=== PATIENT | female | born 1990 | race Asian ===

== ENCOUNTER 2019-07-24 08:25 | Inpatient (IN) | payer BC, OTHER ==
[2019-07-24 09:35] LABS: BASO % 0.3 % (0-2.0); EOS % 1.4 % (0-4.5); HEMATOCRIT 37.5 % (32.4-45.2); HEMOGLOBIN 12.6 GM/dL (10.7-15.3); LYMPH % 25.3 % (8-40); MCH 28.4 pg (25.7-33.7); MCHC 33.6 g/dl (32.0-36.0); MEAN CELL VOLUME 84.4 fl (80-96); MEAN PLT VOLUME 7.4 fl (7.5-11.1); PLATELET COUNT 228 K/MM3 (134-434); RBC 4.44 M/mm3 (3.60-5.2); RDW 18.7 % (11.6-15.6); WHITE BLOOD COUNT 5.5 K/mm3 (4.0-10.0)
[2019-07-24 09:50] LABS: INR 1.05 (0.83-1.09); PROTHROMBIN TIME (PATIENT) 12.4 SEC (9.7-13.0)
[2019-07-24 09:53] LABS: ACTIVATED PTT 28.5 SECONDS (25.2-36.5)
[2019-07-24 10:05] LABS: BLOOD UREA NITROGEN 4.8 mg/dL (7-18); CALCIUM 8.6 mg/dL (8.5-10.1); CREATININE 0.6 mg/dL (0.55-1.3); POTASSIUM 3.6 mmol/L (3.5-5.1)
[2019-07-24 10:27] VITALS: BMI 29.6
[2019-07-24] MEDS ORDERED: DINOPROSTONE 10 MG VAGINAL SUPPOSITORY VG ONE (11:15)
[2019-07-24] MEDS ORDERED: PROMETHAZINE HCL 25 MG/1 ML VIAL IVPUSH ONE (14:18)
[2019-07-24] MEDS ORDERED: BUTORPHANOL TARTRATE 1 MG/ML VIAL IVPUSH ONE (14:18)
[2019-07-24] MEDS ORDERED: ELECTROLYTE-148 SOLN 500 ML IV ONE (16:00)
[2019-07-24] MEDS ORDERED: PROMETHAZINE HCL 25 MG/1 ML VIAL ONE (17:55)
[2019-07-24] MEDS ORDERED: BUTORPHANOL TARTRATE 1 MG/ML VIAL ONE ×2 (17:55)
[2019-07-24] MEDS: ELECTROLYTE-148 SOLN 1,000 ML IV SCH (20:45)
--- NOTE | 2019-07-24 23:26 | HP ---
Past Medical History - Primary Care Physician PCP:: Yuri Lakhani - Admission Chief Complaint: 41 weeks, for induction of labor History of Present Illness: 29 yo f 0 1 0 41 weeks admitted for cervidil induction of labor , cx ft, 25 vx -3 mi, fhr cat 1, no contraction, cervidil risks has explained to patient History Source: Patient Limitations to Obtaining History: No Limitations - Past Medical History ...: 2 ...Para: 0 ...Term: 0 ...: 0 ...Spon : 1 ...Induced : 0 ...Multiple Gestation: 0 ...LMP: 10/08/18 ... Weeks Gestation by Dates: 41.2 ...EDC by Dates: 07/15/19 ...EDC by Sono: 07/18/19 - Past Surgical History Hx Myomectomy: No Hx Transabdominal Cerclage: No - Smoking History Smoking history: Never smoked Have you smoked in the past 12 months: No - Alcohol/Substance Use Hx Alcohol Use: No - Social History Usual Living Arrangement: Yes: With Spouse History of Recent Travel: No Home Medications - Allergies Allergies/Adverse Reactions: Allergies Allergy/AdvReac Type Severity Reaction Status Date / Time nitrofurantoin Allergy Severe Difficulty Verified 04/10/19 14:19 [From Macrobid] Breathing - Home Medications Home Medications: Ambulatory Orders Pnv No.95/Ferrous Fum/Folic AC [ Formula] 1 each PO DAILY 04/10/19 Review of Systems - Review of Systems Constitutional: reports: No Symptoms Eyes: reports: No Symptoms HENT: reports: No Symptoms Neck: reports: No Symptoms Cardiovascular: reports: No Symptoms Respiratory: reports: No Symptoms Gastrointestinal: reports: No Symptoms Genitourinary: reports: No Symptoms Breasts: reports: No Symptoms Reported Musculoskeletal: reports: No Symptoms Integumentary: reports: No Symptoms Neurological: reports: No Symptoms Endocrine: reports: No Symptoms Hematology/Lymphatic: reports: No Symptoms Psychiatric: reports: No Symptoms Physical Exam - Maternity Vital Signs: Vital Signs Temperature 98.0 F 07/24/19 18:00 Pulse Rate 70 07/24/19 20:00 Respiratory Rate 20 07/24/19 20:00 Blood Pressure 111/60 07/24/19 20:00 O2 Sat by Pulse Oximetry (%) Constitutional: Yes: Well Nourished, No Distress, Calm Eyes: Yes: WNL, Conjunctiva Clear, EOM Intact HENT: Yes: WNL, Atraumatic, Normocephalic Neck: Yes: WNL, Supple, Trachea Midline Cardiovascular: Yes: WNL, Regular Rate and Rhythm Breast(s): Yes: WNL - Abdominal Exam/OB Fundal Height: 40 Number of Fetuses: Single Presentation: Vertex Contractions: No Intensity: Unaware Monitor Mode: External Heart Rate Location: [facility] Category: I Accelerations: Non-Uniform Decelerations: None - Vaginal Exam/OB Vaginal Bleediing: No Speculum Exam: No Dilatation (cm): 1 Effacement (%): 25 Amniotic Membrane Status: Intact Presentation: Vertex/Position Station: -3 - Physical Exam Musculoskeletal: Yes: WNL Extremities: Yes: WNL Edema: LLE: Trace, RLE: Trace Deep Tendon Reflex Grade: Normal +2 Psychiatric: Yes: Alert - Labs Lab Results: CBC, BMP 07/24/19 09:00 07/24/19 09:00 Hemorrhage Risk Assessment - Risk Factors Medium Risk Factors: Yes: None High Risk Factors: Yes: None Risk Score: 1 Risk Level: Medium Risk Problem List - Problems (1) Post-dates Code(s): O48.0 - POST-TERM Qualifiers: Post-term type: 40-42 weeks gestation Qualified Code(s): O48.0 - Post-term (2) Post-dates Code(s): O48.0 - POST-TERM (3) Encounter for induction of labor Code(s): Z34.90 - ENCNTR FOR SUPRVSN OF NORMAL , UNSP, UNSP TRIMESTER Assessment/Plan admit for cervidil induction fhm GBS positive ,will start when in labor
--- NOTE | 2019-07-24 23:29 | PN ---
Progress Note (short form) - Note Progress Note: vcx 2 cm 70 vx -3, fhr cat 1, regular contraction q 2 min , cervidil removed, will start GBS prophylaxis Problem List - Problems (1) Post-dates Code(s): O48.0 - POST-TERM Qualifiers: Post-term type: 40-42 weeks gestation Qualified Code(s): O48.0 - Post-term (2) Post-dates Code(s): O48.0 - POST-TERM (3) Encounter for induction of labor Code(s): Z34.90 - ENCNTR FOR SUPRVSN OF NORMAL , UNSP, UNSP TRIMESTER
[2019-07-25] MEDS ORDERED: AMPICILLIN - 2 GM in SODIUM CHLORIDE 100 ML IVPB ONE (01:00)
[2019-07-25] MEDS ORDERED: OXYTOCIN 30 UNITS in 0.9% NS 30 UNIT/500 ML INFUS.BAG IVPB ONE (01:37)
[2019-07-25] MEDS ORDERED: OXYTOCIN 30 UNITS in 0.9% NS 30 UNIT/500 ML INFUS.BAG IVPB SCH (02:00)
[2019-07-25] MEDS ORDERED: AMPICILLIN SODIUM 2 GM VIAL ONE (02:05)
[2019-07-25] MEDS ORDERED: FENTANYL/BUPIVACAINE/NS/PF - PCEA - 50 ML DISP.SYRIN EP ONE ×2 (02:38→07:17)
[2019-07-25] MEDS ORDERED: NALOXONE HCL 0.4 MG/ML VIAL IVPUSH PRN (03:11)
[2019-07-25] MEDS ORDERED: FENTANYL/BUPIVACAINE/NS/PF - PCEA - 50 ML DISP.SYRIN EP SCH (03:15)
--- NOTE | 2019-07-25 04:05 | PN ---
Progress Note (short form) - Note Progress Note: cx 6 cm , 80 vx , -2 mi, fhr cat 1contraction regular Problem List - Problems (1) Post-dates Code(s): O48.0 - POST-TERM Qualifiers: Post-term type: 40-42 weeks gestation Qualified Code(s): O48.0 - Post-term (2) Post-dates Code(s): O48.0 - POST-TERM (3) Encounter for induction of labor Code(s): Z34.90 - ENCNTR FOR SUPRVSN OF NORMAL , UNSP, UNSP TRIMESTER
--- NOTE | 2019-07-25 04:34 | PN ---
Progress Note (short form) - Note Progress Note: cx 7 cm ,100 vx -1 AROM, clear, FHR cat 1 Problem List - Problems (1) Post-dates Code(s): O48.0 - POST-TERM Qualifiers: Post-term type: 40-42 weeks gestation Qualified Code(s): O48.0 - Post-term (2) Post-dates Code(s): O48.0 - POST-TERM (3) Encounter for induction of labor Code(s): Z34.90 - ENCNTR FOR SUPRVSN OF NORMAL , UNSP, UNSP TRIMESTER
[2019-07-25] MEDS: AMPICILLIN - 1 GM in SODIUM CHLORIDE 100 ML IVPB SCH ×2 (05:00→09:00)
[2019-07-25] MEDS ORDERED: AMPICILLIN SODIUM 1 GM VIAL ONE ×2 (06:00→07:54)
[2019-07-25] MEDS ORDERED: OXYTOCIN 20 UNITS in 0.9% NS 20 UNIT/1,000 ML INFUS.BAG IV ONE (07:55)
--- NOTE | 2019-07-25 08:25 | PN ---
Progress Note (short form) - Note Progress Note: cx 9 cm , 1oo vx -1 mr, fhr cat 1, regullar contraction, wants top off Problem List - Problems (1) Post-dates Code(s): O48.0 - POST-TERM Qualifiers: Post-term type: 40-42 weeks gestation Qualified Code(s): O48.0 - Post-term (2) Post-dates Code(s): O48.0 - POST-TERM (3) Encounter for induction of labor Code(s): Z34.90 - ENCNTR FOR SUPRVSN OF NORMAL , UNSP, UNSP TRIMESTER
[2019-07-25 08:55] LABS: POC NITRAZINE NEG
[2019-07-25] MEDS: ELECTROLYTE-148 SOLN 1,000 ML IV SCH (09:35)
[2019-07-25] MEDS ORDERED: GENTAMICIN SO4 80 MG/2 ML VIAL ONE (10:39)
--- NOTE | 2019-07-25 11:28 | PN ---
Progress Note (short form) - Note Progress Note: full 100 vx 2+ station , fhr cat 2, pushing Problem List - Problems (1) Post-dates Code(s): O48.0 - POST-TERM Qualifiers: Post-term type: 40-42 weeks gestation Qualified Code(s): O48.0 - Post-term (2) Post-dates Code(s): O48.0 - POST-TERM (3) Encounter for induction of labor Code(s): Z34.90 - ENCNTR FOR SUPRVSN OF NORMAL , UNSP, UNSP TRIMESTER
[2019-07-25] MEDS ORDERED: GENTAMICIN 80 MG PREMIXED IVPB 80 MG/100 ML BAG IVPB ONE (12:00)
[2019-07-25] MEDS: OXYTOCIN 20 UNITS in 0.9% NS 20 UNIT/1,000 ML INFUS.BAG IV SCH ×2 (12:10→18:00)
[2019-07-25] MEDS ORDERED: METHYLERGONOVINE MALEATE 0.2 MG/1 ML AMP IM PRN (12:31)
[2019-07-25] MEDS ORDERED: BENZOCAINE 20% 57 GM BOTTLE TP PRN (12:31)
[2019-07-25] MEDS ORDERED: BISACODYL 10 MG SUPP.RECT RC PRN (12:31)
[2019-07-25] MEDS ORDERED: BENZOCAINE 28 GM HEMORRHOIDAL OINTMENT TP PRN (12:31)
[2019-07-25] MEDS ORDERED: WITCH HAZEL 50% (TUCKS) 40 PAD/JAR PAD TP PRN (12:31)
[2019-07-25] MEDS ORDERED: D5W-LR W/ 20 UNITS OXYTOCIN 20 UNIT/1,000 ML INFUS.BAG IV SCH (12:45)
[2019-07-25] MEDS ORDERED: ACETAMINOPHEN 325 MG TABLET (FP) PO ONE (13:30)
[2019-07-25] MEDS ORDERED: oxyCODONE HCL 5 MG TABLET PO ONE (13:30)
--- NOTE | 2019-07-25 13:53 | PN ---
Delivery - Delivery Vaginal Delivery: Spontaneous (cx fullydilated head delivered ,renetta, ,ant. 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
[2019-07-25] MEDS: FERROUS SO4 325 MG TABLET (FP) PO SCH (17:02)
[2019-07-25] MEDS: IBUPROFEN 600 MG TABLET (FP) PO PRN (23:20)
[2019-07-25] MEDS: ACETAMINOPHEN 325 MG TABLET (FP) PO PRN (23:20)
[2019-07-26] MEDS: AMPICILLIN - 1 GM in SODIUM CHLORIDE 100 ML IVPB SCH (02:04)
[2019-07-26 07:35] LABS: BASO % 0.3 % (0-2.0); EOS % 1.5 % (0-4.5); HEMATOCRIT 25.1 % (32.4-45.2); HEMOGLOBIN 8.3 GM/dL (10.7-15.3); LYMPH % 23.6 % (8-40); MCH 28.5 pg (25.7-33.7); MCHC 33.2 g/dl (32.0-36.0); MEAN CELL VOLUME 85.9 fl (80-96); MEAN PLT VOLUME 7.3 fl (7.5-11.1); MONO % 7.2 % (3.8-10.2); NEUT % 67.4 % (42.8-82.8); PLATELET COUNT 168 K/MM3 (134-434); RBC 2.92 M/mm3 (3.60-5.2); WHITE BLOOD COUNT 9.7 K/mm3 (4.0-10.0)
[2019-07-26] MEDS: FERROUS SO4 325 MG TABLET (FP) PO SCH ×2 (08:00→17:57)
--- NOTE | 2019-07-26 09:29 | PN ---
Progress Note (short form) - Note Progress Note: ppd 1 s/p , doing well, no excess vaginal bleeding, ambulating, no dizziness CBC, BMP 07/26/19 06:39 07/24/19 09:00 Last Vital Signs Temp Pulse Resp BP Pulse Ox 98.2 F 73 18 92/52 L 98 07/26/19 05:48 07/26/19 05:48 07/26/19 05:48 07/26/19 05:48 07/25/19 11:45 abdomen soft, no CVA, uterus firm, non tender lochia mild no calf tenderness impression anemia , asymptomatic, no active vaginal bleeding plan iron, vit Problem List - Problems (1) Post-dates Code(s): O48.0 - POST-TERM Qualifiers: Post-term type: 40-42 weeks gestation Qualified Code(s): O48.0 - Post-term (2) Post-dates Code(s): O48.0 - POST-TERM (3) Encounter for induction of labor Code(s): Z34.90 - ENCNTR FOR SUPRVSN OF NORMAL , UNSP, UNSP TRIMESTER
[2019-07-26] MEDS: PRENATAL VITAMINS W/ FOLIC ACID TABLET (FP) PO SCH (09:57)
[2019-07-26] MEDS ORDERED: SENNOSIDES/DOCUSATE COMBO (SENNA PLUS) TABLET (UD) PO PRN (22:00)
[2019-07-26] MEDS: IBUPROFEN 600 MG TABLET (FP) PO PRN (22:05)
[2019-07-26] MEDS: ACETAMINOPHEN 325 MG TABLET (FP) PO PRN (22:06)
--- NOTE | 2019-07-27 10:37 | DS ---
Physical Exam-PREVENTION RN Vital Signs: Vital Signs Temperature 98.1 F 07/26/19 22:00 Pulse Rate 78 07/26/19 22:00 Respiratory Rate 18 07/26/19 22:00 Blood Pressure 106/67 07/26/19 22:00 O2 Sat by Pulse Oximetry (%) 98 07/25/19 11:45 Constitutional: Yes: Well Nourished, No Distress, Calm Eyes: Yes: WNL, Conjunctiva Clear, EOM Intact HENT: Yes: WNL, Atraumatic, Normocephalic Neck: Yes: WNL, Supple, Trachea Midline Cardiovascular: Yes: WNL, Regular Rate and Rhythm Respiratory: Yes: WNL, Regular, CTA Bilaterally Gastrointestinal: Yes: WNL ...Rectal Exam: Yes: WNL Renal/: Yes: WNL ....Post : Yes: Uterus firm, Uterus non-tender, Slight lochia rubra Breast(s): Yes: WNL Musculoskeletal: Yes: WNL Extremities: Yes: WNL Edema: No Integumentary: Yes: WNL Neurological: Yes: WNL, Alert, Oriented ...Motor Strength: WNL Psychiatric: Yes: WNL, Alert, Oriented Labs: CBC, BMP 07/26/19 06:39 07/24/19 09:00 Delivery - Delivery Vaginal Delivery: Spontaneous (cx fullydilated head delivered ,renetta, ,ant. 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 Name: Carlene Mcbride Gender: Female Weight: 7 lb 8 oz Position: Left, OA Total Hours ROM (Hrs/Mins): 7/40 - 1 Minute Total Score: 9 5 Minutes Total Score: 9 - [place] Feeding Plan Initial Plan: Exclusive throughout hospitalization Discharge Summary Problems reviewed: Yes Reason For Visit: INDUCTION OF LABOR Current Active Problems Encounter for induction of labor (Acute) Post-dates (Acute) Post-dates (Acute) Procedures: Principal: Other Procedures: median episiotomy Hospital Course: no complication Health Concerns: anemia Plan of Treatment: iron, vit Goals: hb 12 Condition: Good - Instructions Diet, Activity, Other Instructions: regular diet, no intercourse , if pain, heavy vaginal bleeding, fever , dizziness call MD follow up office 4 weeks Referrals: Yuri Lakhani MD [Staff Physician] - Disposition: HOME - Home Medications Comprehensive Discharge Medication List: Ambulatory Orders Pnv No.95/Ferrous Fum/Folic AC [ Formula] 1 each PO DAILY 04/10/19 Ibuprofen [Motrin -] 600 mg PO QID #28 tablet 07/26/19
[2019-07-27] MEDS: FERROUS SO4 325 MG TABLET (FP) PO SCH (10:54)
[2019-07-27] MEDS: PRENATAL VITAMINS W/ FOLIC ACID TABLET (FP) PO SCH (10:54)
[2019-07-27 13:10] VITALS: BP 110/64; PULSE 76; TEMP 98.4
== END 2019-07-27 13:10 | disposition home or self-care (01) | DRG 807 ==
LOC: JLDR 08:25 → J3W 07-25 15:25
PROVIDERS: ADMIT Obstetrics & Gynecology; ATTEND Obstetrics & Gynecology
PROC: 3E0P7VZ Introduction of Hormone into Female Reproductive, Via Natural or Artificial Opening (ICD-10-PCS; 2019-07-24)
PROC: 0W8NXZZ Division of Female Perineum, External Approach (ICD-10-PCS; principal; 2019-07-25)
PROC: 10E0XZZ Delivery of Products of Conception, External Approach (ICD-10-PCS; 2019-07-25)
DX: O48.0 Post-term pregnancy (principal); O99.824 Streptococcus B carrier state complicating childbirth; Z37.0 Single live birth; Z3A.41 41 weeks gestation of pregnancy
CPT/HCPCS: 36415; 36600; 59409; 80048; 82803; 83986-QW; 85025; 85610; 85730; 86593; 86850; 86900; 86901; 87389

== ENCOUNTER 2019-07-31 02:31 | Emergency (ER) | payer BC, OTHER ==
[2019-07-31] MEDS ORDERED: SODIUM CHLORIDE 0.9% 500 ML INFUS.BAG IV ONE (02:32)
[2019-07-31] MEDS ORDERED: ONDANSETRON 4 MG/2 ML VIAL IVPUSH ONE (02:32)
[2019-07-31] MEDS ORDERED: morphine CARPU-JECT 4 MG/1 ML DISP.SYRIN IVPUSH ONE (02:32)
--- NOTE | 2019-07-31 02:39 | PDOC ---
History of Present Illness - General Stated Complaint: ABD PAIN Time Seen by Provider: 07/31/19 02:31 - History of Present Illness Initial Comments: Cookie Wilson is a 29yo otherwise healthy woman, currently 6 days s/p vaginal delivery who presents with acute onset of vaginal bleeding and severe abdominal pain. She states that she had been feeling well throughout the day, got up overnight and used the bathroom. Immediately afterward, she had sudden onset of severe lower abdominal pain and started to have vaginal bleeding with passage of two clots. Ms Wilson is tearful and unable to provide much information. Her and aunt are at bedside to provide additional information. Past History - Past Medical History Allergies/Adverse Reactions: Allergies Allergy/AdvReac Type Severity Reaction Status Date / Time nitrofurantoin Allergy Severe Difficulty Verified 07/31/19 03:26 [From Macrobid] Breathing Home Medications: Ambulatory Orders Pnv No.95/Ferrous Fum/Folic AC [ Formula] 1 each PO DAILY 04/10/19 Ibuprofen [Motrin -] 600 mg PO QID #28 tablet 07/26/19 Asthma: No Cancer: No Cardiac Disorders: No Diabetes: No HTN: No Seizures: No Thyroid Disease: No - Psycho Social/Smoking Cessation Hx Smoking History: Never smoked Have you smoked in the past 12 months: No Hx Alcohol Use: No Drug/Substance Use Hx: No Hx Substance Use Treatment: No Review of Systems - Review of Systems Comments:: Unable to provide Per family, no complaints prior to tonight *Physical Exam - Physical Exam General: Very uncomfortable. Vitals stable, no acute distress HEENT: Atraumatic, PERRL, EOMI, MMM, voice normal Cards: RRR, no murmur appreciated Pulm: Comfortable on room air, clear to auscultation bilaterally Abd: Soft, nondistended. No rigidity. Pt clutching lower abdomen but no involuntary guarding observed : External vaginal exam with approx 15-20cc of dark red blood. Internal exam deferred due to episiotomy and recent delivery Ext: Atraumatic. No LE edema. ROM intact. WWP Skin: Normal color, no rashes or lesions Neuro: A&Ox3, CN grossly intact, normal speech, motor/sensory grossly intact and symmetric Psych: Upset, tearful ED Treatment Course - LABORATORY CBC & Chemistry Diagram: 07/31/19 02:34 07/31/19 02:34 Medical Decision Making - Medical Decision Making 07/31/19 02:36 Cookie Wilson is a 29yo otherwise healthy woman, currently 6 days s/p vaginal delivery who presents with acute onset of vaginal bleeding and severe abdominal pain. She states that she had been feeling well throughout the day, got up overnight and used the bathroom. Immediately afterward, she had sudden onset of severe lower abdominal pain and started to have vaginal bleeding with passage of two clots. Ms Wilson is tearful and unable to provide much information. Her and aunt are at bedside to provide additional information. - Dark red vaginal bleeding - Pt clutching abdomen, resists exam. Appears to be in significant pain. - CBC, CMP, coags, T&S - IVF - Morphine, zofran - OB consult; pt sees dr Lakhani 07/31/19 03:40 - Call to Dr Valladares, spoke to Dr Seo. Per request of Dr Valladares, confirmed that pt breastfed her baby immediately before the pain started. She reports that could have caused oxytocin release, stimulating a uterine contraction and expelling old blood from within the uterus. Would like to be called back with results. Agrees with hydration, checking h/h, pain control - Pt now sleeping comfortably 07/31/19 03:49 - Labs reviewed. Hgb increassed from 8.3 following delivery on 07/25 to 11.1 today. Appropraite increase. No concerning abnormalities - No active bleeding, small amount of dark red blood noted - Pt continues to sleep comfortably - Will reassess. 07/31/19 05:13 - Pt declines acetaminiophen and toradol, states pain is nearly gone - Spoke to Dr Valladares again. Recommending alternating acetaminophen and ibuprofen at home - Pt will call tomorrow to schedule follow up with Dr Lakhani Seen with Dr Gabbi Iniguez PGY2 Discharge - Discharge Information Problems reviewed: Yes Clinical Impression/Diagnosis: Vaginal bleeding Abdominal pain Qualifiers: Abdominal location: lower abdomen, unspecified Qualified Code(s): R10.30 - Lower abdominal pain, unspecified Condition: Stable Disposition: HOME - Admission No - Follow up/Referral Referrals: Jas Morrell MD [Primary Care Provider] - - Patient Discharge Instructions Additional Instructions: Discharge Instructions: You were seen in the emergency department for abdominal pain and vaginal bleeding. This is likely due to normal post- hormone production. The bleeding is probably blood that was inside the uterus being expelled by muscle contraction. Home Care and Follow Up: - You may use over the counter medications as needed for pain at home. 650- 1000mg acetaminophen (Tylenol) or 600mg ibuprofen (Motrin or Advil) can be used every 6-8 hours. If needed for continued pain, these medications may be alternated every 3-4 hours. For example, if you take ibuprofen at 9am, you may take acetaminophen at noon, ibuprofen at 3pm, etc. - It is strongly recommended that you take ibuprofen with food to help prevent stomach irritation. - Try using an ice pack for 20 minutes every hour or a heating pad for additional pain control. These should NOT be used over the lidocaine patch, but you may place them over the areas of pain while the patch is off. - Do not stop moving around. As much as you can tolerate, continue to do light exercise and stretching exercises. Increase your activity level as much as you can tolerate daily. - Call your OB tomorrow to schedule a follow up appointment - Seek immediate medical care if you have significant worsening of your symptoms , heavy vaginal bleeding, you become dizzy or faint, you have difficulty breathing, or any other medical emergency. - Post Discharge Activity Work/Back to School Note: Parent(s) Back to Work Note
[2019-07-31 02:40] VITALS: TEMP 98.4; BMI 30.2
--- NOTE | 2019-07-31 02:43 | PDOC ---
Attending Attestation - Resident Resident Name: Stephanie Iniguez - ED Attending Attestation I have performed the following: I have examined & evaluated the patient, The case was reviewed & discussed with the resident, I agree w/resident's findings & plan - HPI HPI: 07/31/19 04:27 see resident hpi - Physicial Exam PE: 07/31/19 04:27 agree with resident exam - Medical Decision Making 07/31/19 04:27 29-year-old female, 6 days status post normal spontaneous vaginal delivery requiring episiotomy now with sudden onset of severe uterine cramping and bleeding This was immediately following breast-feeding Case discussed with Dr. 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
[2019-07-31 02:56] LABS: BASO % 0.4 % (0-2.0); EOS % 2.6 % (0-4.5); HEMATOCRIT 33.1 % (32.4-45.2); HEMOGLOBIN 11.1 GM/dL (10.7-15.3); LYMPH % 21.6 % (8-40); MCH 28.7 pg (25.7-33.7); MCHC 33.6 g/dl (32.0-36.0); MEAN CELL VOLUME 85.5 fl (80-96); MEAN PLT VOLUME 7.3 fl (7.5-11.1); MONO % 7.1 % (3.8-10.2); NEUT % 68.3 % (42.8-82.8); PLATELET COUNT 326 K/MM3 (134-434); RBC 3.87 M/mm3 (3.60-5.2); RDW 18.8 % (11.6-15.6); WHITE BLOOD COUNT 7.3 K/mm3 (4.0-10.0)
[2019-07-31 03:24] LABS: INR 1.06 (0.83-1.09); PROTHROMBIN TIME (PATIENT) 12.5 SEC (9.7-13.0)
[2019-07-31 03:26] LABS: BILIRUBIN,TOTAL 0.3 mg/dL (0.2-1); CALCIUM 9.2 mg/dL (8.5-10.1); CREATININE 0.6 mg/dL (0.55-1.3); POTASSIUM 4.4 mmol/L (3.5-5.1)
[2019-07-31 03:27] LABS: ACTIVATED PTT 29.3 SECONDS (25.2-36.5)
[2019-07-31] MEDS ORDERED: ACETAMINOPHEN 1000 MG/100 ML VIAL (NON FORMULARY) IVPB ONE (04:43)
[2019-07-31] MEDS ORDERED: KETOROLAC TROMETHAMINE 15 MG/ML VIAL IVPUSH ONE (04:43)
[2019-07-31] MEDS ORDERED: ACETAMINOPHEN INJECTION 100 ML IVPB ONE (04:44)
[2019-07-31] MEDS ORDERED: KETOROLAC TROMETHAMINE 15 MG/ML VIAL ONE (04:44)
[2019-07-31 06:17] VITALS: BP 115/91; PULSE 76
== END 2019-07-31 06:16 | disposition home or self-care (01) ==
LOC: JER 02:31
PROC: 3E033NZ Introduction of Analgesics, Hypnotics, Sedatives into Peripheral Vein, Percutaneous Approach (ICD-10-PCS; principal; 2019-07-31)
PROC: 3E033NZ Introduction of Analgesics, Hypnotics, Sedatives into Peripheral Vein, Percutaneous Approach (ICD-10-PCS; 2019-07-31)
PROC: 3E033GC Introduction of Other Therapeutic Substance into Peripheral Vein, Percutaneous Approach (ICD-10-PCS; 2019-07-31)
DX: O90.89 Other complications of the puerperium, not elsewhere classified (principal); O72.2 Delayed and secondary postpartum hemorrhage; R10.2 Pelvic and perineal pain
CPT/HCPCS: 36415; 80053; 83605; 85025; 85610; 85730; 86850; 86900; 86901; 99282-25

== ENCOUNTER 2021-01-10 20:52 | Emergency (ER) | payer BC, OTHER ==
[2021-01-10 21:04] VITALS: BP 131/84; PULSE 75; TEMP 97.8; BMI 25.1
[2021-01-10 22:32] LABS: BASO % 0.4 % (0-2.0); EOS % 1.8 % (0-4.5); HEMOGLOBIN 11.6 GM/dL (10.7-15.3); LYMPH % 23.7 % (8-40); MCH 28.5 pg (25.7-33.7); MCHC 33.2 g/dl (32.0-36.0); MEAN CELL VOLUME 85.8 fl (80-96); MEAN PLT VOLUME 7.3 fl (7.5-11.1); MONO % 7.2 % (3.8-10.2); NEUT % 66.9 % (42.8-82.8); PLATELET COUNT 241 10^3/uL (134-434); RBC 4.08 M/mm3 (3.60-5.2); RDW 15.5 % (11.6-15.6); WHITE BLOOD COUNT 9.5 K/mm3 (4.0-10.0)
[2021-01-10 22:35] LABS: EPI CELLS 5 /uL (0-25.1); HYALINE CASTS 0 /uL (0-3.1); URINE APPEARANCE CLEAR; URINE BACTERIA 54 /uL (0-1359); URINE BILIRUBIN NEGATIVE (NEGATIVE); URINE COLOR YELLOW; URINE GLUCOSE (UA) NEGATIVE (NEGATIVE); URINE KETONE NEGATIVE (NEGATIVE); URINE LEUK ESTERASE NEGATIVE (NEGATIVE); URINE NITRITE NEGATIVE (NEGATIVE); URINE PROTEIN NEGATIVE (NEGATIVE); URINE RBC 31 /uL (0-23.9); URINE UROBILINOGEN 0.2 mg/dL (0.2-1.0); URINE WBC 4 /uL (0-25.8)
[2021-01-10] MEDS ORDERED: SODIUM CHLORIDE 1,000 ML IV STA (22:48)
[2021-01-10 22:52] LABS: ALBUMIN 3.2 g/dl (3.4-5.0); BLOOD UREA NITROGEN 9.2 mg/dL (7-18); CALCIUM 8.3 mg/dL (8.5-10.1)
[2021-01-10 22:56] LABS: CREATININE 0.5 mg/dL (0.55-1.3)
[2021-01-10 22:57] LABS: BILIRUBIN,TOTAL 0.2 mg/dL (0.2-1); TOT PROT 6.9 g/dl (6.4-8.2)
== END 2021-01-11 00:03 | disposition home or self-care (01) ==
LOC: JER 20:52
DX: O26.82 Pregnancy related peripheral neuritis (principal); Z3A.20 20 weeks gestation of pregnancy
CPT/HCPCS: 36415; 76815; 80053; 81003; 85025; 99284-25

== ENCOUNTER 2021-06-02 07:10 | Inpatient (IN) | payer OTHER ==
[2021-06-02] MEDS: DEXTROSE 5%-LACTATED RINGERS 1,000 ML IV SCH ×2 (08:00→15:41)
[2021-06-02] MEDS ORDERED: DINOPROSTONE 10 MG VAGINAL SUPPOSITORY VG ONE (08:28)
[2021-06-02] MEDS ORDERED: PROMETHAZINE HCL 25 MG/1 ML VIAL IVPUSH ONE (08:33)
[2021-06-02] MEDS ORDERED: BUTORPHANOL TARTRATE 2 MG/ML VIAL IVPUSH PRN (08:33)
[2021-06-02 08:42] LABS: INR 1.13 (0.83-1.09); PROTHROMBIN TIME (PATIENT) 13.2 SEC (9.7-13.0)
[2021-06-02 08:45] LABS: ACTIVATED PTT 23.9 SECONDS (25.2-36.5)
[2021-06-02 08:55] VITALS: BMI 31.1
[2021-06-02 12:10] LABS: HIV INTERPRETATION NEGATIVE (NEGATIVE)
[2021-06-02] MEDS ORDERED: OXYTOCIN 30 UNITS in 0.9% NS 30 UNIT/500 ML INFUS.BAG IVPB SCH (20:30)
[2021-06-02] MEDS ORDERED: AMPICILLIN SODIUM 2 GM VIAL IVPB ONE (21:15)
[2021-06-02] MEDS ORDERED: NALOXONE HCL 0.4 MG/ML VIAL IVPUSH PRN (21:56)
[2021-06-02] MEDS ORDERED: BUPIVACAINE HCL/PF 0.25% (2.5MG/ML) 10 ML VIAL ONE (21:58)
[2021-06-02] MEDS ORDERED: FENTANYL/BUPIVACAINE/NS/PF - PCEA - 50 ML DISP.SYRIN EP ONE (22:08)
[2021-06-02] MEDS: FENTANYL/BUPIVACAINE/NS/PF - PCEA - 50 ML DISP.SYRIN EP SCH (22:25)
[2021-06-02] MEDS ORDERED: CITRIC ACID/SODIUM CITRATE 30 ML UNIT-DOSE CUP PO ONE (22:58)
[2021-06-02] MEDS ORDERED: ELECTROLYTE-148 SOLN 1,000 ML IV SCH (23:00)
[2021-06-03] MEDS ORDERED: FENTANYL/BUPIVACAINE/NS/PF - PCEA - 50 ML DISP.SYRIN EP ONE (01:14)
[2021-06-03] MEDS: AMPICILLIN SODIUM 1 GM VIAL IVPB SCH ×3 (01:15→17:30)
[2021-06-03] MEDS: FENTANYL/BUPIVACAINE/NS/PF - PCEA - 50 ML DISP.SYRIN EP SCH (01:15)
[2021-06-03] MEDS ORDERED: AMPICILLIN SODIUM 1 GM VIAL ONE (01:23)
[2021-06-03] MEDS ORDERED: OXYTOCIN 20 UNITS in 0.9% NS 20 UNIT/1,000 ML INFUS.BAG IV ONE (02:40)
[2021-06-03] MEDS ORDERED: LIDOCAINE HCL 1% PRESERVATIVE FREE - 30ML VIAL ONE (02:40)
[2021-06-03] MEDS ORDERED: WITCH HAZEL 50% (TUCKS) 40 PAD/JAR PAD TP PRN (03:37)
[2021-06-03] MEDS ORDERED: BENZOCAINE 28 GM HEMORRHOIDAL OINTMENT TP PRN (03:37)
[2021-06-03] MEDS ORDERED: METHYLERGONOVINE MALEATE 0.2 MG/1 ML AMP IM PRN (03:37)
[2021-06-03] MEDS ORDERED: ACETAMINOPHEN 325 MG TABLET (FP) PO PRN (03:37)
[2021-06-03] MEDS ORDERED: BENZOCAINE 20% 57 GM BOTTLE TP PRN (03:37)
[2021-06-03] MEDS ORDERED: BISACODYL 10 MG SUPP.RECT RC PRN (03:37)
[2021-06-03] MEDS ORDERED: oxyCODONE HCL 5 MG TABLET PO PRN (03:38)
[2021-06-03] MEDS ORDERED: METHYLERGONOVINE MALEATE 0.2 MG/1 ML AMP IM ONE (03:41)
[2021-06-03] MEDS ORDERED: OXYTOCIN 20 UNITS in 0.9% NS 20 UNIT/1,000 ML INFUS.BAG IV SCH (04:00)
[2021-06-03 04:28] LABS: CORD BASE EXCESS -6.1 mmol/L (0-2); CORD HCO3 20.6 mmHg (20-29); CORD pH 7.279 (7.14-7.44)
[2021-06-03] MEDS ORDERED: ONDANSETRON 4 MG/2 ML VIAL IVPUSH ONE (04:47)
[2021-06-03] MEDS ORDERED: ONDANSETRON 4 MG/2 ML VIAL ONE (05:52)
[2021-06-03 06:50] LABS: BASO % 0.2 % (0-2.0); HEMATOCRIT 31.4 % (32.4-45.2); HEMOGLOBIN 10.3 GM/dL (10.7-15.3); LYMPH % 7.8 % (8-40); MCH 23.8 pg (25.7-33.7); MCHC 32.9 g/dl (32.0-36.0); MEAN CELL VOLUME 72.3 fl (80-96); MEAN PLT VOLUME 7.5 fl (7.5-11.1); MONO % 6.9 % (3.8-10.2); NEUT % 85.1 % (42.8-82.8); PLATELET COUNT 211 10^3/uL (134-434); RBC 4.35 M/mm3 (3.60-5.2); RDW 19.8 % (11.6-15.6); WHITE BLOOD COUNT 13.4 K/mm3 (4.0-10.0)
[2021-06-03 06:57] LABS: ALBUMIN 2.1 g/dl (3.4-5.0); BLOOD UREA NITROGEN 6.8 mg/dL (7-18); CALCIUM 7.7 mg/dL (8.5-10.1)
[2021-06-03 07:01] LABS: CREATININE 0.7 mg/dL (0.55-1.3)
[2021-06-03 07:02] LABS: TOT PROT 5.7 g/dl (6.4-8.2)
[2021-06-03 07:03] LABS: BILIRUBIN,TOTAL 0.7 mg/dL (0.2-1)
[2021-06-03 09:15] LABS: EPI CELLS 5 /uL (0-25.1); HYALINE CASTS 60 /uL (0-3.1); URINE APPEARANCE TURBID; URINE BILIRUBIN 1+ (NEGATIVE); URINE COLOR RED; URINE GLUCOSE (UA) NEGATIVE (NEGATIVE); URINE KETONE NEGATIVE (NEGATIVE); URINE LEUK ESTERASE 2+ (NEGATIVE); URINE NITRITE POSITIVE (NEGATIVE); URINE PROTEIN 3+ (NEGATIVE); URINE UROBILINOGEN 0.2 mg/dL (0.2-1.0); URINE WBC 79 /uL (0-25.8)
[2021-06-03 09:47] LABS: URINE RBC 39673.4 /uL (0-23.9)
[2021-06-03 09:48] LABS: URINE CRYSTALS NONE SEEN /hpf
[2021-06-03] MEDS ORDERED: IBUPROFEN 600 MG TABLET (FP) PO ONE (12:42)
[2021-06-03] MEDS ORDERED: FERROUS SO4 325 MG TABLET (FP) ONE (12:43)
[2021-06-03] MEDS ORDERED: PRENATAL VITAMINS W/ FOLIC ACID TABLET (FP) PO ONE (12:43)
[2021-06-03] MEDS: IBUPROFEN 600 MG TABLET (FP) PO PRN ×2 (12:46→20:05)
[2021-06-03] MEDS: FERROUS SO4 325 MG TABLET (FP) PO SCH ×2 (12:46→21:22)
[2021-06-03] MEDS: PRENATAL VITAMINS W/ FOLIC ACID TABLET (FP) PO SCH (12:46)
[2021-06-04 07:27] LABS: BASO % 0.4 % (0-2.0); EOS % 1.8 % (0-4.5); HEMATOCRIT 25.6 % (32.4-45.2); HEMOGLOBIN 8.4 GM/dL (10.7-15.3); LYMPH % 33.7 % (8-40); MCH 24.1 pg (25.7-33.7); MCHC 32.8 g/dl (32.0-36.0); MEAN CELL VOLUME 73.4 fl (80-96); MEAN PLT VOLUME 7.6 fl (7.5-11.1); MONO % 7.1 % (3.8-10.2); PLATELET COUNT 178 10^3/uL (134-434); RBC 3.49 M/mm3 (3.60-5.2); WHITE BLOOD COUNT 7.7 K/mm3 (4.0-10.0)
[2021-06-04] MEDS: FERROUS SO4 325 MG TABLET (FP) PO SCH (10:10)
[2021-06-04] MEDS: PRENATAL VITAMINS W/ FOLIC ACID TABLET (FP) PO SCH (10:10)
[2021-06-04] MEDS: IBUPROFEN 600 MG TABLET (FP) PO PRN (10:18)
[2021-06-04 15:41] VITALS: BP 105/67; PULSE 81; TEMP 98.2
[2021-06-04] MEDS ORDERED: SENNOSIDES/DOCUSATE COMBO (SENNA PLUS) TABLET (UD) PO PRN (22:00)
== END 2021-06-04 15:55 | disposition home or self-care (01) | DRG 807 ==
LOC: JLDR 07:10 → J3W 06-03 13:58
PROVIDERS: ADMIT Obstetrics & Gynecology; ATTEND Obstetrics & Gynecology
PROC: 3E0P7VZ Introduction of Hormone into Female Reproductive, Via Natural or Artificial Opening (ICD-10-PCS; 2021-06-02)
PROC: 10907ZC Drainage of Amniotic Fluid, Therapeutic from Products of Conception, Via Natural or Artificial Opening (ICD-10-PCS; 2021-06-02)
PROC: 10E0XZZ Delivery of Products of Conception, External Approach (ICD-10-PCS; principal; 2021-06-03)
PROC: 0HQ9XZZ Repair Perineum Skin, External Approach (ICD-10-PCS; 2021-06-03)
DX: O48.0 Post-term pregnancy (principal); Z37.0 Single live birth; O99.824 Streptococcus B carrier state complicating childbirth; B95.1 Streptococcus, group B, as the cause of diseases classified elsewhere; O70.0 First degree perineal laceration during delivery; O90.89 Other complications of the puerperium, not elsewhere classified; R06.02 Shortness of breath; Z3A.40 40 weeks gestation of pregnancy
CPT/HCPCS: 36415; 36600; 59409; 80053; 81003; 82550; 82553; 82803; 84484; 85025; 85610; 85730; 86780; 87389; 93005; 93010